=== PATIENT | female | born 1975 | race Caucasian/White ===

== ENCOUNTER → 2016-09-29 | Outpatient (CLI) | payer BC | LOC: BMCIMAGING 18:13 | PROVIDERS: ATTEND Family Medicine | DX: S92.512A Displaced fracture of proximal phalanx of left lesser toe(s), initial encounter for closed fracture (principal) ==

== ENCOUNTER → 2016-10-25 | Outpatient (CLI) | payer BC | LOC: FIMAGING 12:50 | PROVIDERS: ATTEND Midwife | DX: R93.5 Abnormal findings on diagnostic imaging of other abdominal regions, including retroperitoneum (principal); N92.6 Irregular menstruation, unspecified ==

== ENCOUNTER → 2017-10-12 | Outpatient (CLI) | payer BC | LOC: FIMAGING 14:30 | PROVIDERS: ATTEND Midwife | DX: R93.8 Abnormal findings on diagnostic imaging of other specified body structures (principal); N83.201 Unspecified ovarian cyst, right side ==

== ENCOUNTER → 2018-08-08 | Outpatient (CLI) | payer BC | LOC: FIMAGING 11:38 | PROVIDERS: ATTEND Family Medicine | DX: R10.84 Generalized abdominal pain (principal); R10.2 Pelvic and perineal pain; N93.9 Abnormal uterine and vaginal bleeding, unspecified; R93.89 Abnormal findings on diagnostic imaging of other specified body structures; N83.202 Unspecified ovarian cyst, left side ==